=== PATIENT | female | born 1960 | race Caucasian/White ===

== ENCOUNTER 2017-12-28 17:55 | Emergency (ER) | payer MEDICAID ==
[~2017-12-28] VITALS: Ht 167.6 cm; Wt 81.0 kg
[2017-12-28] MEDS ORDERED: HYDROCODONE/ACETAMINOPHEN 5/325MG TABLET PO ONE (20:00)
[2017-12-28 21:59] VITALS: BP 158/104
== END 2017-12-28 22:02 | disposition home or self-care (01) ==
LOC: ER 17:59
DX: M25.512 Pain in left shoulder (principal); M25.522 Pain in left elbow; I10 Essential (primary) hypertension; Z90.49 Acquired absence of other specified parts of digestive tract; Z90.710 Acquired absence of both cervix and uterus
CPT/HCPCS: 73030; 73060; 73080; 99284

== ENCOUNTER 2018-01-09 10:56 | Emergency (ER) | payer MEDICAID ==
[~2018-01-09] VITALS: Ht 157.5 cm; Wt 75.0 kg
[2018-01-09 13:12] VITALS: BP 140/93
[2018-01-09] MEDS ORDERED: HYDROCODONE/ACETAMINOPHEN 10/325MG TABLET PO ONE (13:15)
== END 2018-01-09 14:29 | disposition home or self-care (01) ==
LOC: ER 11:47
DX: M25.532 Pain in left wrist (principal); I10 Essential (primary) hypertension; M19.90 Unspecified osteoarthritis, unspecified site; Z85.43 Personal history of malignant neoplasm of ovary; Z85.42 Personal history of malignant neoplasm of other parts of uterus; Z90.49 Acquired absence of other specified parts of digestive tract; Z98.84 Bariatric surgery status; Z90.710 Acquired absence of both cervix and uterus; W01.0XXA Fall on same level from slipping, tripping and stumbling without subsequent striking against object, initial encounter; Y93.89 Activity, other specified; Y92.018 Other place in single-family (private) house as the place of occurrence of the external cause
CPT/HCPCS: 29105; 29125; 73110; 73130; 99284

== ENCOUNTER 2025-03-19 20:23 | Emergency (ER) | payer MEDICAID ==
[~2025-03-19] VITALS: Ht 152.4 cm; Wt 61.0 kg
[2025-03-19 20:32] VITALS: BP 115/60; PULSE 85; RESP 16; TEMP 36.6; O2SAT 98
== END 2025-03-19 21:30 | disposition left against medical advice (07) ==
LOC: ER 20:23
DX: M79.672 Pain in left foot (principal); I10 Essential (primary) hypertension
CPT/HCPCS: 99281